=== PATIENT | female | born 1945 | race Two or more races ===

== ENCOUNTER 2025-04-03 07:45 | Outpatient (CLI) | payer OTHER | END 2025-04-03 07:54 | disposition home or self-care (01) | LOC: SONOGRAMA 07:45 | PROVIDERS: ATTEND Physical Medicine & Rehabilitation Hospice and Palliative Medicine | DX: M25.511 Pain in right shoulder (principal); M25.512 Pain in left shoulder; M75.31 Calcific tendinitis of right shoulder; M75.32 Calcific tendinitis of left shoulder ==